=== PATIENT | male | born 1985 | race Caucasian/White ===

== ENCOUNTER 2016-08-03 23:15 | Observation (INO) | payer OTHER ==
[~2016-08-03] VITALS: Ht 162.6 cm; Wt 157.7 kg
[~2016-08-03 23:15] MED LIST: DOCU100T5 PO; DOXY100T9 PO; PANT40TA5 PO; SENN8.6T3 PO; SPIR25TA3 PO; TRAM50TA PO
[2016-08-04 00:34] LABS: BASO # 0.1 x10^3/uL (0.0-0.2); BASO % 1 % (0-3); EOS % 2 % (0-3); HEMATOCRIT 44.9 % (39.0-53.0); HEMOGLOBIN 14.7 g/dL (13.0-17.5); LYMPH # 2.5 x10^3/uL (1.0-4.8); LYMPH % 25 % (24-48); MEAN CORPUSCULAR HEMOGLOBIN 27 pg (25-35); MEAN CORPUSCULAR HGB CONC 33 g/dL (31-37); MEAN CORPUSCULAR VOLUME 82 fL (79-100); MONO % 8 % (0-9); NEUT % 65 % (31-73); PLATELET COUNT 258 x10^3/uL (140-400); RED BLOOD COUNT 5.46 x10^6/uL (4.30-5.70); RED CELL DISTRIBUTION WIDTH 13.7 % (11.5-14.5)
[2016-08-04 00:45] LABS: ANION GAP 8 (6-14); BLOOD UREA NITROGEN 9 mg/dL (8-26); CALCIUM 9.5 mg/dL (8.5-10.1); CARBON DIOXIDE 29 mmol/L (21-32); CHLORIDE 103 mmol/L (98-107); CREATININE 1.1 mg/dL (0.7-1.3); GFR 79.1; GLUCOSE 116 mg/dL (70-99); SODIUM 140 mmol/L (136-145)
[2016-08-04 00:51] LABS: ALBUMIN 3.8 g/dL (3.4-5.0); ALK PHOS 93 U/L (46-116); ALT (SGPT) 60 U/L (16-63); AST (SGOT) 38 U/L (15-37); DIRECT BILIRUBIN < 0.1 mg/dL (0.0-0.2); TOTAL BILIRUBIN 0.3 mg/dL (0.2-1.0); TOTAL PROTEIN 7.4 g/dL (6.4-8.2)
--- NOTE | 2016-08-04 01:20 | PHYS DOC ---
Past Medical History Past Medical History: Anxiety, GERD, Other Additional Past Medical Histor: EDEMA, A.D.D Past Surgical History: Other Additional Past Surgical Histo: URETHRAL REPAIR Alcohol Use: None Drug Use: None Adult General Chief Complaint Chief Complaint: Palpitations HPI HPI 31-year-old male presenting the emergency department today with intermittent palpitations. He recently went up on his ADHD medication. Intermittently he has felt dizzy. He has had intermittent sharp substernal nonradiating pain with these palpitations. The palpitations occur more at night. He denies abdominal pain and vomiting. He denies diaphoresis. Review of Systems Review of Systems ROS negative for abdominal pain nausea vomiting diaphoresis fevers chills. All other review of systems is negative unless otherwise noted in history of present illness. Allergies Allergies Allergies Coded Allergies Type Severity Reaction Last Updated Verified cefaclor Allergy Intermediate 11/24/14 Yes sulfamethoxazole Allergy Intermediate 11/24/14 Yes trimethoprim Allergy Intermediate 11/24/14 Yes Physical Exam Physical Exam Constitutional: Well developed, well nourished, no acute distress, non-toxic appearance. HENT: Normocephalic, atraumatic, bilateral external ears normal, oropharynx moist, no oral exudates, nose normal. [] Eyes: PERRLA, EOMI, conjunctiva normal, no discharge. Neck: Normal range of motion, no tenderness, supple, no stridor. [] Cardiovascular:Heart rate regular rhythm, no murmur [] Lungs & Thorax: Bilateral breath sounds clear to auscultation Abdomen: Bowel sounds normal, soft, no tenderness, no masses, no pulsatile masses. [] Skin: Warm, dry, no erythema, no rash. Back: No tenderness, no CVA tenderness. [] Extremities: No tenderness, no cyanosis, no clubbing, ROM intact, no edema. Neurologic: Alert and oriented X 3, normal motor function, normal sensory function, no focal deficits noted. Psychologic: Affect normal, judgement normal, mood normal. [] Current Patient Data Vital Signs Vital Signs Date Time Temp Pulse Resp B/P Pulse Ox O2 Delivery O2 Flow Rate FiO2 08/03/16 23:30 98.2 88 20 141/70 97 Room Air 98.2 Lab Values Laboratory Tests Test 08/04/16 00:30 White Blood Count 10.0x10^3/uL (4.0-11.0) Red Blood Count 5.46x10^6/uL (4.30-5.70) Hemoglobin 14.7g/dL (13.0-17.5) Hematocrit 44.9% (39.0-53.0) Mean Corpuscular Volume 82fL (79-100) Mean Corpuscular Hemoglobin 27pg (25-35) Mean Corpuscular Hemoglobin Concent 33g/dL (31-37) Red Cell Distribution Width 13.7% (11.5-14.5) Platelet Count 258x10^3/uL (140-400) Neutrophils (%) (Auto) 65% (31-73) Lymphocytes (%) (Auto) 25% (24-48) Monocytes (%) (Auto) 8% (0-9) Eosinophils (%) (Auto) 2% (0-3) Basophils (%) (Auto) 1% (0-3) Neutrophils # (Auto) 6.5x10^3uL (1.8-7.7) Lymphocytes # (Auto) 2.5x10^3/uL (1.0-4.8) Monocytes # (Auto) 0.8x10^3/uL (0.0-1.1) Eosinophils # (Auto) 0.2x10^3/uL (0.0-0.7) Basophils # (Auto) 0.1x10^3/uL (0.0-0.2) Sodium Level 140mmol/L (136-145) Potassium Level 4.0mmol/L (3.5-5.1) Chloride Level 103mmol/L (98-107) Carbon Dioxide Level 29mmol/L (21-32) Anion Gap 8 (6-14) Blood Urea Nitrogen 9mg/dL (8-26) Creatinine 1.1mg/dL (0.7-1.3) Estimated GFR (Cockcroft-Gault) 79.1 Glucose Level 116mg/dL (70-99) H Calcium Level 9.5mg/dL (8.5-10.1) Phosphorus Level 2.8mg/dL (2.6-4.7) Magnesium Level 1.9mg/dL (1.8-2.4) Total Bilirubin 0.3mg/dL (0.2-1.0) Direct Bilirubin < 0.1mg/dL (0.0-0.2) Aspartate Amino Transferase (AST) 38U/L (15-37) H Alanine Aminotransferase (ALT) 60U/L (16-63) Alkaline Phosphatase 93U/L (46-116) Troponin I Quantitative < 0.017ng/mL (0.000-0.055) SQ-Dan-V-Type Natriuretic Peptide 7pg/mL (0-124) Total Protein 7.4g/dL (6.4-8.2) Albumin 3.8g/dL (3.4-5.0) Lipase 80U/L (73-393) Laboratory Tests 08/04/16 00:30 Laboratory Tests 08/04/16 00:30 EKG EKG EKG shows sinus rhythm with a tachycardic rate. ST segments congruent. Intervals are within normal limits. [place] is within normal limits. One PVC noted. Radiology/Procedures Radiology/Procedures [] Chest x-ray shows no acute infiltrate or pneumothorax present. Currently present. Course & Med Decision Making Course & Med Decision Making Pertinent Labs and Imaging studies reviewed. (See chart for details) 31-year-old male presenting the emergency department today with palpitations. Vital signs were unremarkable. The patient had multiple PVCs including bigeminy and trigeminy while on telemetry monitoring in the emergency department. Otherwise patient's EKG was unremarkable. Blood work within normal limits. Given the amount of PVCs and frequent see the patient was admitted for telemetry and cardiology consultation. Likely this is secondary to his Adderall though I will send a magnesium and phosphorus as well. The patient was then admitted for further evaluation workup and care. Dragon Disclaimer Dragon Disclaimer This electronic medical record was generated, in whole or in part, using a voice recognition dictation system. Departure Departure Impression: Primary Impression: Palpitations Additional Impressions: Bigeminy Trigeminy PVC (premature ventricular contraction) Disposition: 01 HOME, SELF-CARE Condition: STABLE Referrals: ADELIA TOPETE MD (PCP) Patient Instructions: Palpitations, [id number] Additional Instructions: Thank you for allowing us to participate in your care today. Followup with your primary care physician in 3 days if your symptoms do not improve. If you do not have a primary care provider you can ask for a list of our primary care providers. Return to the emergency department you have any new or concerning findings. This should be evaluated by the primary care physician and any necessary consulting services for continued management within a few days after discharge. Return to emergency room if you have any new or concerning symptoms including but not limited to fever, chills, nausea, vomiting, intractable pain, any new rashes, chest pain, shortness of air, uncontrolled bleeding, difficulty breathing, and/or vision loss. Problem Qualifiers FAN MONTAGUE MD Aug 04, 2016 01:19
[2016-08-04] MEDS ORDERED: ONDANSETRON PF 4 MG/2 ML VIAL. IV PRN (01:45)
[2016-08-04] MEDS ORDERED: MORPHINE SULFATE 2 MG/ML DISP.SYRIN. IV PRN (01:45)
[2016-08-04 01:56] LABS: MAGNESIUM 1.9 mg/dL (1.8-2.4); PHOSPHORUS 2.8 mg/dL (2.6-4.7)
[2016-08-04] MEDS ORDERED: LORAZEPAM 1 MG TABLET. PO ONE (02:30)
[2016-08-04] MEDS ORDERED: LORAZEPAM 0.5 MG TABLET. PO ONE (02:30)
[2016-08-04] MEDS ORDERED: DEXT30CA6 PO ×2 (02:43→05:46)
[2016-08-04 03:22] VITALS: BP 148/81
[2016-08-04] MEDS ORDERED: HYDROCODONE/APAP 5/325MG TABLET. PO PRN (05:15)
[2016-08-04] MEDS: FENTANYL PF 100 MCG/2 ML VIAL. IV PRN ×4 (05:31→21:28)
[2016-08-04] MEDS: ALPRAZOLAM 0.25 MG TABLET PO PRN ×2 (05:31→21:36)
--- NOTE | 2016-08-04 06:06 | EKG ---
[facility] [address] [place] [address] Test Date: 2016-08-03 Test Time: 23:21:29 Pat Name: REGINA IGLESIAS Department: Room: [facility] Gender: M Form Grader Operator: : 1985 Requested By: LISANDRA CHAPARRO Order Number: [id number] Reading MD: Benson Cantor Measurements Intervals [place] Rate: 98 P: 32 TN: 150 QRS: 141 QRSD: 92 T: 28 QT: 334 QTc: 428 Interpretive Statements SINUS RHYTHM RAD PVC Electronically Signed On 08-10-2016 11:21:01 WEB MARKETING ANALYST by Benson Cantor
[2016-08-04 07:12] VITALS: BP 129/70
--- NOTE | 2016-08-04 08:05 | RAD ---
EXAM: Chest, single view. HISTORY: Chest pain. COMPARISON: 04/06/2016. FINDINGS: A frontal view of chest is obtained. There is no infiltrate, effusion or pneumothorax. There is mild enlargement of the cardiac silhouette, a component of which is due to portable technique. IMPRESSION: No acute pulmonary finding.
--- NOTE | 2016-08-04 08:11 | PDOC1 ---
History and Physical Date of Admission Date of Admission DATE: 08/04/16 TIME: 08:06 Identification/Chief Complaint Chief Complaint dyspnea, palpitations Source Source: Chart review, Patient History of Present Illness History of Present Illness Mr. 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 some chest pressure, and he did feel dyspneic overnight, and dizzy at times. He recently went up on his ADHD medication per Dr. Orozco, he had been having trouble focusing later in his shift. he works 5pm to 2:30am, and these symptoms happen late Also reports some sharp substernal nonradiating pain with these palpitations. Past Medical History Cardiovascular: No pertinent hx Pulmonary: Asthma, Other CENTRAL NERVOUS SYSTEM: Other GI: GERD Heme/Onc: No pertinent hx Hepatobiliary: No pertinent hx Psych: No pertinent hx Musculoskeletal: No pain Rheumatologic: No pertinent hx Infectious disease: No pertinent hx Renal/: No pertinent hx Endocrine: No pertinent hx Past Surgical History Past Surgical History: No pertinent history Family History Family History: No Significant Social History Smoke: No ALCOHOL: none Drugs: None Current Problem List Problem List Problems Medical Problems: (1) Bigeminy Status: Acute (2) Palpitations Status: Acute (3) PVC (premature ventricular contraction) Status: Acute (4) Trigeminy Status: Acute Problems: Current Medications Current Medications Current Medications Ondansetron HCl (Zofran) 4 mg PRN Q8HRS PRN IV NAUSEA/VOMITING; Start 08/04/16 at 01:45; Stop 08/05/16 at 01:44 Morphine Sulfate 2 mg PRN Q2HR PRN IV SEVERE PAIN Last administered on 02:59; Start 08/04/16 at 01:45; Stop 08/05/16 at 01:44 Lorazepam (Ativan) 0.5 mg 1X ONCE PO ; Start 08/04/16 at 02:30; Stop 08/04/16 at 02:30; Status DC Lorazepam (Ativan) 0.5 mg 1X ONCE PO Last administered on 08/04/16 02:24; Start 08/04/16 at 02:30; Stop 08/04/16 at 02:31; Status DC Alprazolam (Xanax) 0.25 mg PRN Q8HRS PRN PO ANXIETY / AGITATION Last administered on 08/04/16 05:31; Start 08/04/16 at 05:15 Acetaminophen/ Hydrocodone Bitart (Lortab 5/325) 1 tab PRN Q6HRS PRN PO SEVERE PAIN Last administered on 08/04/16 07:53; Start 08/04/16 at 05:15 Fentanyl Citrate (Fentanyl 2ml Vial) 25 mcg PRN Q4HRS PRN IV SEVERE PAIN Last administered on 08/04/16 05:31; Start 08/04/16 at 05:15 Pantoprazole Sodium (Protonix) 40 mg DAILYAC PO ; Start 08/04/16 at 08:00 Sennosides (Senna) 8.6 mg DAILY PO ; Start 08/04/16 at 09:00 Spironolactone (Aldactone) 25 mg BID PO ; Start 08/04/16 at 09:00 Tramadol HCl (Ultram) 50 mg PRN Q6HRS PRN PO PAIN; Start 08/04/16 at 08:00 Docusate Sodium (Colace) 100 mg DAILY PO ; Start 08/04/16 at 09:00 Active Scripts Active Docusate Sodium 100 Mg Tablet 100 Mg PO DAILY Senna (Sennosides) 8.6 Mg Tablet 8.6 Mg PO DAILY Tramadol Hcl 50 Mg Tablet 50 Mg PO Q6H PRN Pantoprazole Sodium 40 Mg Tablet.dr 40 Mg PO DAILYAC 30 Days Reported Adderall Xr 30 Mg Capsule (Dextroamphetamine/Amphetamine) 30 Mg Cap.er.24h 1 Cap PO DAILY Spironolactone 25 Mg Tablet 25 Mg PO BID Allergies Allergies: Coded Allergies: cefaclor (Verified Allergy, Intermediate, 11/24/14) sulfamethoxazole (Verified Allergy, Intermediate, 11/24/14) trimethoprim (Verified Allergy, Intermediate, 11/24/14) ROS General: YES: Fatigue, No: Appetite, Chills, Malaise, Night Sweats, Other PSYCHOLOGICAL ROS: No: Anxiety, Behavioral Disorder, Concentration difficultie , Decreased libido, Depression, Disorientation, Hallucinations, Hostility, Irritablity, Memory difficulties, Mood Swings, Obsessive thoughts, Other, Physical abuse, Sexual abuse, Sleep disturbances, Suicidal ideation HEENT: No: Epistaxis, Heacaches, Hearing change, Nasal congestion, Nasal discharge, Oral lesions, Other, Sinus pain, Sneezing, Snoring, Sore Throat, Tinnitus, Vertigo, Visual Changes, Vocal changes Respiratory: YES: Other (chest pressure), SOB with excertion, No: Cough, Hemoptysis, Orthopnea, Pleuritic Pain, Shortness of breath, Sputum Changes, Stridor, Tachypnea, Wheezing Cardiovascular: yes Palpitations, No Chest Pain, No Edema, No Lt Headedness, No Orthopnea, No Other, No Paroxysmal Noc. Dyspnea Gastrointestinal: No Abdominal Pain, No Constipation, No Diarrhea, No Hematochezia, No Melena, No Nausea, No Other, No Vomiting Genitourinary: No , No , No , No , No , No , No , No Discharge, No Dysuria, No Flank Pain, No Frequency, No Hematuria, No Incontinence, No Other, No Pain, No Retention, No Urgency Musculoskeletal: No Gait Disturbance, No Joint Stiffness, No Joint Swelling, No Muscle Pain, No Muscular Weakness, No Other, No Pain In:, No Swelling In: Neurological: No Behavorial Changes, No Bowel/Bladder ControlChng, No Confusion , No Dizziness, No Gait Disturbance, No Headaches, No Impaired Coord/balance, No Memory Loss, No Numbness/Tingling, No Other, No Seizures, No Speech Problems , No Tremors, No Visual Changes, No Weakness Skin: No Acne, No Dry Skin, No Eczema, No Hair Changes, No Lumps, No Mole Changes, No Mottling, No Nail Changes, No Other, No Pruritus, No Rash, No Skin Lesion Changes Physical Exam General: Alert, Oriented X3, Cooperative, No acute distress HEENT: Atraumatic, PERRLA, EOMI, Mucous membr. moist/pink Lungs: Clear to auscultation, Normal air movement Abdomen: Normal bowel sounds, Soft (very obese) Extremities: No clubbing, No cyanosis, No edema, Normal pulses Skin: No breakdown, No significant lesion Neuro: Normal tone, Sensation intact, Cranial nerves 3-12 NL Psych/Mental Status: Mood NL Vitals Vitals Vital Signs Date Time Temp Pulse Resp B/P Pulse Ox O2 Delivery O2 Flow Rate FiO2 08/04/16 07:54 Room Air 08/04/16 07:53 95 08/04/16 07:12 97.9 83 18 129/70 97.9 Labs Labs Laboratory Tests Test 08/04/16 00:30 White Blood Count 10.0x10^3/uL (4.0-11.0) Red Blood Count 5.46x10^6/uL (4.30-5.70) Hemoglobin 14.7g/dL (13.0-17.5) Hematocrit 44.9% (39.0-53.0) Mean Corpuscular Volume 82fL (79-100) Mean Corpuscular Hemoglobin 27pg (25-35) Mean Corpuscular Hemoglobin Concent 33g/dL (31-37) Red Cell Distribution Width 13.7% (11.5-14.5) Platelet Count 258x10^3/uL (140-400) Neutrophils (%) (Auto) 65% (31-73) Lymphocytes (%) (Auto) 25% (24-48) Monocytes (%) (Auto) 8% (0-9) Eosinophils (%) (Auto) 2% (0-3) Basophils (%) (Auto) 1% (0-3) Neutrophils # (Auto) 6.5x10^3uL (1.8-7.7) Lymphocytes # (Auto) 2.5x10^3/uL (1.0-4.8) Monocytes # (Auto) 0.8x10^3/uL (0.0-1.1) Eosinophils # (Auto) 0.2x10^3/uL (0.0-0.7) Basophils # (Auto) 0.1x10^3/uL (0.0-0.2) Sodium Level 140mmol/L (136-145) Potassium Level 4.0mmol/L (3.5-5.1) Chloride Level 103mmol/L (98-107) Carbon Dioxide Level 29mmol/L (21-32) Anion Gap 8 (6-14) Blood Urea Nitrogen 9mg/dL (8-26) Creatinine 1.1mg/dL (0.7-1.3) Estimated GFR (Cockcroft-Gault) 79.1 Glucose Level 116mg/dL (70-99) Calcium Level 9.5mg/dL (8.5-10.1) Phosphorus Level 2.8mg/dL (2.6-4.7) Magnesium Level 1.9mg/dL (1.8-2.4) Total Bilirubin 0.3mg/dL (0.2-1.0) Direct Bilirubin < 0.1mg/dL (0.0-0.2) Aspartate Amino Transf (AST/SGOT) 38U/L (15-37) Alanine Aminotransferase (ALT/SGPT) 60U/L (16-63) Alkaline Phosphatase 93U/L (46-116) Troponin I Quantitative < 0.017ng/mL (0.000-0.055) QA-Oji-L-Type Natriuretic Peptide 7pg/mL (0-124) Total Protein 7.4g/dL (6.4-8.2) Albumin 3.8g/dL (3.4-5.0) Lipase 80U/L (73-393) Laboratory Tests Test 08/04/16 00:30 White Blood Count 10.0x10^3/uL (4.0-11.0) Red Blood Count 5.46x10^6/uL (4.30-5.70) Hemoglobin 14.7g/dL (13.0-17.5) Hematocrit 44.9% (39.0-53.0) Mean Corpuscular Volume 82fL (79-100) Mean Corpuscular Hemoglobin 27pg (25-35) Mean Corpuscular Hemoglobin Concent 33g/dL (31-37) Red Cell Distribution Width 13.7% (11.5-14.5) Platelet Count 258x10^3/uL (140-400) Neutrophils (%) (Auto) 65% (31-73) Lymphocytes (%) (Auto) 25% (24-48) Monocytes (%) (Auto) 8% (0-9) Eosinophils (%) (Auto) 2% (0-3) Basophils (%) (Auto) 1% (0-3) Neutrophils # (Auto) 6.5x10^3uL (1.8-7.7) Lymphocytes # (Auto) 2.5x10^3/uL (1.0-4.8) Monocytes # (Auto) 0.8x10^3/uL (0.0-1.1) Eosinophils # (Auto) 0.2x10^3/uL (0.0-0.7) Basophils # (Auto) 0.1x10^3/uL (0.0-0.2) Sodium Level 140mmol/L (136-145) Potassium Level 4.0mmol/L (3.5-5.1) Chloride Level 103mmol/L (98-107) Carbon Dioxide Level 29mmol/L (21-32) Anion Gap 8 (6-14) Blood Urea Nitrogen 9mg/dL (8-26) Creatinine 1.1mg/dL (0.7-1.3) Estimated GFR (Cockcroft-Gault) 79.1 Glucose Level 116mg/dL (70-99) Calcium Level 9.5mg/dL (8.5-10.1) Phosphorus Level 2.8mg/dL (2.6-4.7) Magnesium Level 1.9mg/dL (1.8-2.4) Total Bilirubin 0.3mg/dL (0.2-1.0) Direct Bilirubin < 0.1mg/dL (0.0-0.2) Aspartate Amino Transf (AST/SGOT) 38U/L (15-37) Alanine Aminotransferase (ALT/SGPT) 60U/L (16-63) Alkaline Phosphatase 93U/L (46-116) Troponin I Quantitative < 0.017ng/mL (0.000-0.055) RX-Mpx-A-Type Natriuretic Peptide 7pg/mL (0-124) Total Protein 7.4g/dL (6.4-8.2) Albumin 3.8g/dL (3.4-5.0) Lipase 80U/L (73-393) VTE Prophylaxis Ordered VTE Prophylaxis Devices: No VTE Pharmacological Prophylaxi: No Assessment/Plan Assessment/Plan palpitations, bigeminy obs CV eval ADHD, dose recently increased dr Dr. Orozco, I would recommend backing off morbid obesity, BMI 59, weight loss plan discussed, he has lost 20 lbs intentionally past few months GERD, cont PPI TASH BARR MD Aug 04, 2016 08:11
--- NOTE | 2016-08-04 11:34 | PDOC2 ---
KACEY DAMICO PARCEL [employer] WEIGHER 08/04/16 1134: CARDIAC CONSULT DATE OF CONSULT Date of Consult DATE: 08/04/16 TIME: 11:27 REASON FOR CONSULT Reason for Consult: Multiple PVCs, bigeminy run REFERRING PHYSICIAN Referring Physician: Sanjana SOURCE Source: Chart review, Patient HISTORY OF PRESENT ILLNESS HISTORY OF PRESENT ILLNESS This is a 31 yo male admitted for complains of palpitations. Reports that this intermittent episodes started about 3 days ago and really scared him. This was associated with burning sensation on his chest but denies any SOA, diaphoresis, nausea. Denies any dizziness. He has been having issues in focusing and was started on adderall on 07/14/2016 and was just recently increased from 20 to 30 mg daily. Denies any associated excessive caffeinated use. PAST MEDICAL HISTORY Past Medical History Cardiovascular: No pertinent hx Pulmonary: Asthma (as a child), Other (MARCY with CPAP) CENTRAL NERVOUS SYSTEM: Other (none) GI: GERD Heme/Onc: No pertinent hx Hepatobiliary: No pertinent hx Psych: ADD Musculoskeletal: No pain Rheumatologic: No pertinent hx Infectious disease: No pertinent hx ENT: No pertinent hx Renal/: No pertinent hx Endocrine: No pertinent hx Dermatology: No pertinent hx PAST SURGICAL HISTORY Past Surgical History No pertinent history FAMILY HISTORY Family History negative for CAD and SCD SOCIAL HISTORY Social History Smoke: Quit (2003 with 7 pack year history) ALCOHOL: none Drugs: None Lives: with Family CURRENT MEDICATIONS CURRENT MEDICATIONS Current Medications Medications (Trade) Dose Ordered Sig/Felicitas Route PRN Reason Start Time Stop Time Status Last Admin Dose Admin Morphine Sulfate 2 mg PRN Q2HR PRN IV SEVERE PAIN 08/04/16 01:45 08/05/16 01:44 08/04/16 02:59 Lorazepam (Ativan) 0.5 mg 1X ONCE PO 08/04/16 02:30 08/04/16 02:31 DC 08/04/16 02:24 Alprazolam (Xanax) 0.25 mg PRN Q8HRS PRN PO ANXIETY / AGITATION 08/04/16 05:15 08/04/16 05:31 Acetaminophen/ Hydrocodone Bitart (Lortab 5/325) 1 tab PRN Q6HRS PRN PO SEVERE PAIN 08/04/16 05:15 08/04/16 07:53 Fentanyl Citrate (Fentanyl 2ml Vial) 25 mcg PRN Q4HRS PRN IV SEVERE PAIN 08/04/16 05:15 08/04/16 05:31 ALLERGIES ALLERGIES: Coded Allergies: cefaclor (Verified Allergy, Intermediate, 11/24/14) sulfamethoxazole (Verified Allergy, Intermediate, 11/24/14) trimethoprim (Verified Allergy, Intermediate, 11/24/14) ROS Review of System 14 point ROS evaluated with pertinent positives noted per HPI PHYSICAL EXAM General: Alert, Oriented X3, Cooperative, No acute distress HEENT: Atraumatic, Mucous membr. moist/pink Lungs: Clear to auscultation, Normal air movement Heart: Regular rate, Normal S1, Normal S2, No murmurs Abdomen: Normal bowel sounds, Soft, No tenderness Extremities: No cyanosis, No edema Skin: No breakdown, No significant lesion Neuro: Normal speech, Sensation intact Psych/Mental Status: Mental status NL, Mood NL MUSCULOSKELETAL: Full range of motion without pain VITALS VITALS Vital Signs Date Time Temp Pulse Resp B/P Pulse Ox O2 Delivery O2 Flow Rate FiO2 08/04/16 09:19 95 Room Air 08/04/16 07:12 97.9 83 18 129/70 97.9 LABS Lab: Laboratory Tests Test 08/04/16 00:30 White Blood Count 10.0x10^3/uL (4.0-11.0) Red Blood Count 5.46x10^6/uL (4.30-5.70) Hemoglobin 14.7g/dL (13.0-17.5) Hematocrit 44.9% (39.0-53.0) Mean Corpuscular Volume 82fL (79-100) Mean Corpuscular Hemoglobin 27pg (25-35) Mean Corpuscular Hemoglobin Concent 33g/dL (31-37) Red Cell Distribution Width 13.7% (11.5-14.5) Platelet Count 258x10^3/uL (140-400) Neutrophils (%) (Auto) 65% (31-73) Lymphocytes (%) (Auto) 25% (24-48) Monocytes (%) (Auto) 8% (0-9) Eosinophils (%) (Auto) 2% (0-3) Basophils (%) (Auto) 1% (0-3) Neutrophils # (Auto) 6.5x10^3uL (1.8-7.7) Lymphocytes # (Auto) 2.5x10^3/uL (1.0-4.8) Monocytes # (Auto) 0.8x10^3/uL (0.0-1.1) Eosinophils # (Auto) 0.2x10^3/uL (0.0-0.7) Basophils # (Auto) 0.1x10^3/uL (0.0-0.2) Sodium Level 140mmol/L (136-145) Potassium Level 4.0mmol/L (3.5-5.1) Chloride Level 103mmol/L (98-107) Carbon Dioxide Level 29mmol/L (21-32) Anion Gap 8 (6-14) Blood Urea Nitrogen 9mg/dL (8-26) Creatinine 1.1mg/dL (0.7-1.3) Estimated GFR (Cockcroft-Gault) 79.1 Glucose Level 116mg/dL (70-99) Calcium Level 9.5mg/dL (8.5-10.1) Phosphorus Level 2.8mg/dL (2.6-4.7) Magnesium Level 1.9mg/dL (1.8-2.4) Total Bilirubin 0.3mg/dL (0.2-1.0) Direct Bilirubin < 0.1mg/dL (0.0-0.2) Aspartate Amino Transf (AST/SGOT) 38U/L (15-37) Alanine Aminotransferase (ALT/SGPT) 60U/L (16-63) Alkaline Phosphatase 93U/L (46-116) Troponin I Quantitative < 0.017ng/mL (0.000-0.055) QU-Qpl-O-Type Natriuretic Peptide 7pg/mL (0-124) Total Protein 7.4g/dL (6.4-8.2) Albumin 3.8g/dL (3.4-5.0) Lipase 80U/L (73-393) STRESS TEST STRESS TEST Conclusion 1. Treadmill exercise cardioisotope stress test did not show any evidence of ischemia or infarct. 2. Normal left ventricular systolic function with ejection fraction calculated at 69%. 3. Patient had fair activity tolerance. Low risk for cardiac events. DATE: 04/07/16 1315 ASSESSMENT/PLAN ASSESSMENT/PLAN 1. Arrhythmia and palpitations: Troponin normal, EKG SR with RPFB. Mg and K normal. Noted with frequent bigeminies in ED per report. Per tele review occasional PVCs but no significant ectopies. Recent MPI unremarkable for abnormalities TTE today to complete cardiac workup and note baseline. Suspect induced by Adderall. Pt is considering eliminating Adderall and trying alternatives without amphetamines such as ritalin and wellbutrin. Pt to discuss with outpt PCP. Will defer to PCP. If no significant changes to TTE then no further workup. To add previous TSH was normal. 2. ADD: Adderall started on 07/14/2016 and recently increased dose. 3. Morbid obestiy: continue with lifestyle modifications. Problems: SAIDA STOKES MD 08/04/16 2235: CARDIAC CONSULT ALLERGIES ALLERGIES: Coded Allergies: cefaclor (Verified Allergy, Intermediate, 11/24/14) sulfamethoxazole (Verified Allergy, Intermediate, 11/24/14) trimethoprim (Verified Allergy, Intermediate, 11/24/14) ASSESSMENT/PLAN ASSESSMENT/PLAN Pt. seen and examined. 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 No acute issues since admission. 31 y. o male with arrhythmia. No clear CV abnormalities on exam. Echo wnl. Ok to DC home from CV perspective. Will plan for change in adderall with PCP Problems: KACEY DAMICO APRN Aug 04, 2016 11:34 SAIDA STOKES MD Aug 04, 2016 22:35
[2016-08-04] MEDS: PANTOPRAZOLE 40 MG TABLET. PO SCH (12:29)
[2016-08-04] MEDS: SPIRONOLACTONE 25 MG TABLET PO SCH ×2 (12:29→20:16)
[2016-08-04] MEDS: SENNOSIDES 8.6 MG TABLET PO SCH (12:29)
[2016-08-04] MEDS: DOCUSATE SODIUM 100 MG CAPSULE PO SCH (12:30)
--- NOTE | 2016-08-04 16:35 | CARD ---
APPROVED REPORT EXAM: Two-dimensional and M-mode echocardiogram with Doppler and color Doppler. Other Information Quality : FairHR: 72bpm Rhythm : PVC's INDICATION Palpitations Arrhythmia RISK FACTORS Hypertension Obesity 2D DIMENSIONS RVDd2.3 (2.9-3.5cm)Left Atrium(2D)3.2 (1.6-4.0cm) IVSd1.0 (0.7-1.1cm)Aortic Root(2D)2.1 (2.0-3.7cm) LVDd5.6 (3.9-5.9cm)LVOT Diameter2.3 (1.8-2.4cm) PWd1.0 (0.7-1.1cm)LVDs3.2 (2.5-4.0cm) FS (%) 42.7 %SV114.0 ml Aortic Valve AoV Peak Gerber.121.4cm/sAoV VTI23.2cm AO Peak GR.5.9mmHgLVOT Peak Gerber.88.6cm/s AO Mean GR.4mmHgAVA (VMAX)3.02cm2 Mitral Valve MV E Pbkqtpoh32.8cm/sMV E Peak Gr.6mmHg MV DECEL [id number] A Xadvngwc34.4cm/s MV E Mean Gr.2mmHgE/A Ratio1.6 MV A [id number] Pulmonary Valve PV Peak Mefngvbp28.4cm/s Pulmonary Vein S1 Ppvqnfjb65.3cm/sD2 Akbweqbj57.4cm/s PVa [id number] LEFT VENTRICLE Technically difficult study. The left ventricle is normal size. There is normal left ventricular wall thickness. The left ventricular systolic function is normal and the ejection fraction is within norm al range. The Ejection Fraction is 60-65%. There is normal LV segmental wall motion. The left ventric ular diastolic function and filling is normal for age. RIGHT VENTRICLE The right ventricle is normal size. The right ventricular systolic function is normal. ATRIA The left atrium size is normal. The right atrium size is normal. The interatrial septum is intact wit h no evidence for an atrial septal defect or patent foramen ovale as noted on 2-D or Doppler imaging. AORTIC VALVE The aortic valve is normal in structure and function. Doppler and Color Flow revealed no significant aortic regurgitation. There is no significant aortic valvular stenosis. MITRAL VALVE The mitral valve is normal in structure and function. There is no evidence of mitral valve prolapse. There is no mitral valve stenosis. Doppler and Color Flow revealed no mitral valve regurgitation note d. TRICUSPID VALVE The tricuspid valve is normal in structure and function. Doppler and Color Flow revealed no tricuspid valve regurgitation noted. There is no tricuspid valve stenosis. PULMONIC VALVE The pulmonary valve is normal in structure and function. Doppler and Color Flow revealed no pulmonic valvular regurgitation. There is no pulmonic valvular stenosis. GREAT VESSELS The aortic root is normal in size. The ascending aorta is normal in size. The pulmonary artery is nor mal. The IVC is normal in size and collapses >50% with inspiration. PERICARDIAL EFFUSION There is no evidence of significant pericardial effusion. Critical Notification Critical Value: No <Conclusion> Technically difficult study. The left ventricle is normal size. The left ventricular systolic function is normal and the ejection fraction is within normal range. The Ejection Fraction is 60-65%. Doppler and Color Flow revealed no significant aortic regurgitation. There is no significant aortic valvular stenosis. Doppler and Color Flow revealed no mitral valve regurgitation noted. Doppler and Color Flow revealed no tricuspid valve regurgitation noted.
[2016-08-04 19:28] VITALS: BP 112/66
[2016-08-04] MEDS: TRAMADOL 50 MG TABLET. PO PRN (20:19)
[2016-08-04 23:02] VITALS: BP 101/59
[2016-08-05] MEDS: TRAMADOL 50 MG TABLET. PO PRN (03:19)
[2016-08-05 03:31] VITALS: BP 121/60
[2016-08-05 07:00] VITALS: BP 106/57
[2016-08-05] MEDS: SENNOSIDES 8.6 MG TABLET PO SCH (08:35)
[2016-08-05] MEDS: PANTOPRAZOLE 40 MG TABLET. PO SCH (08:35)
[2016-08-05] MEDS: DOCUSATE SODIUM 100 MG CAPSULE PO SCH (08:35)
[2016-08-05] MEDS: SPIRONOLACTONE 25 MG TABLET PO SCH (08:35)
[2016-08-05] MEDS ORDERED: DEXT15CA18 PO (10:13)
[2016-08-05 10:50] VITALS: BP 137/71
== END 2016-08-05 11:20 | disposition home or self-care (01) ==
LOC: ER 23:15 → 6 SOUTH 08-04 01:37
PROVIDERS: ADMIT Internal Medicine; ATTEND Internal Medicine
DX: I49.9 Cardiac arrhythmia, unspecified (principal); R00.2 Palpitations; I49.3 Ventricular premature depolarization; R00.8 Other abnormalities of heart beat; F41.9 Anxiety disorder, unspecified; K21.9 Gastro-esophageal reflux disease without esophagitis; F90.9 Attention-deficit hyperactivity disorder, unspecified type; R42 Dizziness and giddiness; Z87.891 Personal history of nicotine dependence; E66.01 Morbid (severe) obesity due to excess calories; J45.909 Unspecified asthma, uncomplicated
CPT/HCPCS: 36415; 71010; 80048; 80076; 83690; 83735; 83880; 84100; 84484; 85027; 93005; 93306; 96374; 96375; 96376; 99285; G0378; J2270; J3010; G0379